=== PATIENT | male | born 1965 | race Caucasian/White ===

== ENCOUNTER 2016-12-11 16:00 | Emergency (ER) | payer OTHER ==
[2016-12-11] MEDS ORDERED: LACTATED RINGERS 1,000 ML ONE (16:45)
[2016-12-11] MEDS ORDERED: ASPIRIN (ENTERIC COATED) 81 MG TABLET.EC ONE (16:45)
[2016-12-11 16:57] LABS: ABSOLUTE NEUTROPHIL COUNT 2.2 K/mm3 (1.8-7.7); BASO % 0.8 % (0.2-1.0); EOS # 0.3 (0.0-0.5); EOS % 4.9 % (0.9-2.9); HEMATOCRIT 41.5 % (32.0-52.0); HEMOGLOBIN 14.1 gm/l (14.0-18.0); IMM NEUT% 0.4 % (0-1); LYMPH # 2.2 (1.0-4.8); LYMPH % 41.7 % (15-45); MEAN CELL VOLUME 88.9 fl (80.0-94.0); MEAN CORPUSCULAR HEMOGLOBIN 30.2 pg (27.0-31.0); MEAN PLATELET VOLUME 9.6 fl (7.4-10.4); MONO # 0.6 (0.0-0.8); MONO % 11.1 % (4-12); NEUT % 41.1 % (43-75); PLATELET COUNT 203 K/mm3 (130-400); RED CELL DISTRIBUTION WIDTH 13.2 % (11.5-14.5)
[2016-12-11 17:19] LABS: ALB/GLOB RATIO 1.4 (>1.0); ALBUMIN 4.2 gm/dL (3.5-5.7); CALCIUM 9.4 mg/dL (8.6-10.3); MAGNESIUM 1.9 mg/dL (1.9-2.7)
--- NOTE | 2016-12-11 17:21 | RAD ---
History: Chest pain. Comparison: None. Technique: 2 views Findings: The soft tissue and bony structures are unremarkable. The heart size is appropriate. No infiltrate, effusion or pneumothorax is observed. The hilar and mediastinal structures are normal. Impression: 1. No active intra-thoracic disease.
[2016-12-11 17:25] LABS: TROPONIN I < 0.01 ng/ml (0.0-0.06)
[2016-12-11 17:29] LABS: CKMB ISOENZYME 2.4 ng/ml (0.6-6.3)
== END 2016-12-11 20:42 | disposition home or self-care (01) ==
LOC: ED 16:00
DX: R07.9 Chest pain, unspecified (principal); E78.5 Hyperlipidemia, unspecified; Z87.891 Personal history of nicotine dependence